=== PATIENT | male | born 1960 | race Caucasian/White ===

== ENCOUNTER 2018-01-07 09:34 | Day surgery (SDC) | payer OTHER, SELFPAY ==
[2018-01-07 10:04] VITALS: BP 105/62; PULSE 60; RESP 16; TEMP 36.7; O2SAT 100
[2018-01-07] MEDS: Lactated Ringers 1,000 ML 80 ML IV (10:07)
[2018-01-07] MEDS: GENTAMICIN 120 MG in Normal Saline 100 ML 200 MG IVPB (11:00)
[2018-01-07] MEDS: Lidocaine 2% Jelly 11 ML SYR (11:07)
--- NOTE | 2018-01-07 11:11 | W.PM.DSUDISC ---
Discharge Plan Disposition Patient Disposition: HOME Condition: Stable Discharge Details Attending Provider: Srinath Azevedo Primary Care Provider: Amauri Harrison Home Meds and New Rx's Prescriptions: New sulfamethoxazole-trimethoprim [Bactrim DS] 800-160 mg tablet 1 tab PO BID Qty: 6 RF: 0 Continue aspirin [Adult Aspirin Regimen] 81 mg tablet,delayed release (DR/EC) 81 mg PO DAILY RF: 0 famotidine 40 MG tablet 40 mg PO DAILY RF: 0 pravastatin 40 mg Tablet 40 mg PO DAILY RF: 0 diphenhydramine-acetaminophen [Acetaminophen PM] 25-500 mg Tablet 1,000 mg PO HS RF: 0 Discharge Instructions Additional Instructions: OK to shower/bathe F/U with me @ 1 month to review stone analysis Activity:: Activity as Tolerated Diet:: As Tolerated Discharge Orders Discharge Orders: Discharge Order (Routine); Ordered 01/07/18 Ordered By: Srinath Azevedo Discharge Data Discharge Comment: may use OTC tylenol and NSAIDs for pain
[2018-01-07] MEDS: Phenazopyridine 200 MG TAB PO (11:28)
[2018-01-07 11:45] VITALS: BP 105/67; PULSE 62; RESP 16; TEMP 35.9; O2SAT 98
--- NOTE | 2018-01-07 12:04 | ROE_ITS ---
REPORT OF OPERATIVE PROCEDURE DATE OF PROCEDURE January 07, 2018 PREOPERATIVE DIAGNOSIS Urethral stone. POSTOPERATIVE DIAGNOSIS Right kidney stone. PROCEDURE PERFORMED Cystoscopy, basket extraction of urethral stone. SURGEON Srinath Azevedo M.D. ANESTHESIA MAC with local. COMPLICATIONS None. FINDINGS Stone within prostatic urethra that was manipulated back into the bladder. HISTORY This is a 57-year-old gentleman, who has a past history of kidney stones. He had undergone ureteroscopic surgery down at [facility] about 10 to 15 years ago. About a week ago, he noticed some right-sided flank pain. The pain was suggestive of his previous renal colic. His pain actually improved, but then he had an abrupt stop in his urinary stream when he attempted to void. Since then, he has been able to void small amounts with a very slow stream. He has some perineal discomfort. Clinically, he is suspicious that his stone has lodged in the urethra. I had seen him up in the office and actually did a flexible cystoscopy. We were able to visualize the stone in his prostatic urethra, but I was unable to dislodge the stone or remove it. We then elected to bring him down to the Operating Room to manipulate the stone under anesthesia. We have our Holmium laser available should we need to fracture the stone. OPERATIVE REPORT The patient was brought to the Operating Room on 01/07/2018. After being given Monitored Anesthesia Care, he was placed in the dorsal lithotomy position. He was given a dose of preoperative IV gentamicin. He was prepped and draped. A #22 Vietnamese rigid cystoscope was passed through the urethra, just as we identified up in the office, the pendulous urethra appeared normal. There was a narrowing at the bulbous urethra and proximal to that, in the prostatic urethra , a stone was visualized. With the patient under anesthesia, I was able to manipulate the stone back into the bladder. We were then able to grasp the stone in a Zero Tip stone basket and remove it in its entirety. Repeat cystoscopy revealed no urethral lacerations. So I elected not to place a urethral catheter. The stones were sent to pathology for chemical analysis. The patient tolerated this procedure well. He was taken back to the Outpatient Area in stable condition. CC: Amauri Harrison M.D.
[2018-01-11 14:55] LABS: Source: Urethra
== END 2018-01-07 11:20 | disposition home or self-care (01) ==
PROVIDERS: PCP Family Medicine; Visit Provider Urology
PROC: (CPT 52310; principal; 2018-01-07 10:00)
DX: N21.0 Calculus in bladder (principal); Z87.442 Personal history of urinary calculi; K21.9 Gastro-esophageal reflux disease without esophagitis
CPT/HCPCS: 52310; 82360; J1580

== ENCOUNTER 2018-02-22 00:41 | Outpatient (CLI) | payer OTHER, SELFPAY ==
--- NOTE | 2018-02-22 13:33 | DI.CT_ITS ---
SYMPTOMS/DIAGNOSIS: CHECK STONE BURDEN, KIDNEY STONES ABDOMINAL AND PELVIC CT: CT scan of the abdomen and pelvis was performed according to the renal colic protocol. There are no priors for comparison. In the left kidney, there are approximately five stones present. There is a single nonobstructing stone in the upper pole, which is the largest and measures 0.7 cm. Approximately four nonobstructing smaller stones are seen in the lower pole. No ureterolithiasis or hydronephrosis is seen. In the right kidney, approximately eight to ten nonobstructing stones are present. The largest is in the lower pole and it measures 0.9 cm. No ureterolithiasis or hydronephrosis is seen. The urinary bladder is intact. No bladder stones are present. The prostate gland appears mildly enlarged and does appear to impinge upon the base of the urinary bladder. There is atherosclerosis of the abdominal aorta, but no aneurysmal dilatation is seen. The visualized lung bases are clear. Lack of IV contrast does limit evaluation of the abdominal and pelvic organs. The unenhanced liver, spleen, pancreas, gallbladder and adrenal glands are grossly unremarkable. There is patient motion artifact, which does limit the evaluation of the examination. The bowel shows no evidence of obstruction or inflammation. There are a few diverticula seen in the sigmoid colon but no evidence of acute diverticulitis. There is no evidence of an acute appendicitis present. No significant abdominal or pelvic adenopathy, ascites or pneumoperitoneum is present. Degenerative changes are seen in the spine. IMPRESSION: Bilateral nephrolithiasis.
== END 2018-02-22 01:01 ==
PROVIDERS: PCP Family Medicine; Visit Provider Urology
DX: N20.0 Calculus of kidney (principal); K57.30 Diverticulosis of large intestine without perforation or abscess without bleeding
CPT/HCPCS: 74176

== ENCOUNTER 2019-05-01 09:37 | Outpatient (CLI) | payer OTHER, SELFPAY ==
--- NOTE | 2019-05-01 08:36 | DI.RAD_ITS ---
EXAM: XR ABDOMEN FLAT PLATE CLINICAL HISTORY: monitor known stones, kayla kidney stones, N20.0 calculus of kidney TECHNIQUE: COMPARISON: CT ABDOMEN PELVIS WO from 02/22/2018 FINDINGS: Single view of the abdomen was obtained. There are multiple bilateral renal calculi, similar in appe arance to jigmaker view of prior CT of February 2018. There appear to be prostatic calcifications and t here are multiple phleboliths in the pelvis as well as vascular calcifications of the pelvis. IMPRESSION: Bilateral renal calculi as described.
== END 2019-05-01 09:57 ==
PROVIDERS: PCP Family Medicine; Visit Provider Urology
DX: N20.0 Calculus of kidney (principal)
CPT/HCPCS: 74018

== ENCOUNTER 2019-05-04 06:13 | Day surgery (SDC) | payer OTHER, SELFPAY ==
[2019-05-04 06:21] VITALS: BP 97/64; PULSE 70; RESP 16; TEMP 36.7; O2SAT 97
[2019-05-04] MEDS: Ciprofloxacin 250 MG TAB PO (06:48)
[2019-05-04] MEDS: Lactated Ringers 1,000 ML 80 ML IV (07:06)
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
--- NOTE | 2019-05-04 08:55 | W.PM.DSUDISC ---
Discharge Plan Disposition Patient Disposition: HOME Condition: Stable Discharge Details Reason For Visit: BILATERAL KIDNEY STONES Attending Provider: Srinath Azevedo Primary Care Provider: Amauri Harrison Home Meds and New Rx's Prescriptions: New tramadol 50 mg tablet 50 mg PO Q6H PRN (Reason: pain) Qty: 12 RF: 0 No Action aspirin [Adult Aspirin Regimen] 81 mg tablet,delayed release (DR/EC) 81 mg PO DAILY RF: 0 famotidine 40 MG tablet 40 mg PO DAILY RF: 0 pravastatin 40 mg Tablet 40 mg PO DAILY RF: 0 diphenhydramine-acetaminophen [Acetaminophen PM] 25-500 mg Tablet 1,000 mg PO HS RF: 0 Discharge Instructions Additional Instructions: strain urine - bring any fragment to office at time of followup visit F/U 4 to 6 weeks with KUB on day of visit script for Tramadol sent to pharmacy may restart aspirin tomorrow (Wednesday05/05/2019) Activity:: Activity as Tolerated Shower/Bathe:: 24 hours Diet:: As Tolerated Discharge Orders Discharge Orders: Discharge Order (Routine); Ordered 05/04/19 Ordered By: Srinath Azevedo DS: Diagnosis Discharge Diagnosis (1) Bilateral kidney stones: Status: Chronic
[2019-05-04 09:30] VITALS: BP 98/58; PULSE 66; RESP 16; TEMP 36.2; O2SAT 98
--- NOTE | 2019-05-05 09:39 | ROE_ITS ---
DATE OF PROCEDURE: May 04, 2019 PREOPERATIVE DIAGNOSIS: Bilateral kidney stones. POSTOPERATIVE DIAGNOSIS: Same. PROCEDURE: Bilateral extracorporeal shockwave lithotripsy. SURGEON: Srinath Azevedo M.D. ANESTHESIA: MAC COMPLICATIONS: None. ESTIMATED BLOOD LOSS: Minimal. HISTORY: This is a 59-year-old gentleman who has a history of bilateral kidney stones. In the past he has required ureteroscopic stone treatment. He has also had a stone become wedge in the urethra. I was able to treat him locally with cystoscopy and evacuation of the urethral stone. He is now having increasing right-sided pain. On imaging studies he was identified as having mid-fidel e stones on the right, as well as a large lower pole stone. On the left side he was found to have a large lower pole stone. We had discussed multiple treatment options including ureteroscopy, ESWL or percutaneous nephrolithot yamile. He elected to proceed with ESWL. OPERATIVE REPORT: The patient was brought to the operating room on 05/04/2019. He was given monitore d anesthesia care and positioned on the lithotriptor bed. We elected to treat the left side first. His lower pole stone was identified radiographically (both with ultrasound and fluoroscopy). He was positioned such that the stone was within the focal zone of the lithotriptor. He was then treated with a total of 2500 shocks. We ranged our power setting fro m 1 to 20. There appeared to be excellent fragmentation of the stone when it was viewed with imaging studies. We then moved the patient such that the right side could be treated. We started with the mid-pole st one and localized it radiographically. The stone was then treated with a total of 1000 shocks rangin g from 1 to 20. We then moved on to the right lower pole stone and treated that stone with the remai lottie 1500 shocks at a power setting of 20. All stones appeared to fragment well, but there was no obvious migration of stone particles during th e treatment. He tolerated this procedure well with no complications. cc: Amauri Harrison M.D.
== END 2019-05-04 10:00 | disposition home or self-care (01) ==
PROVIDERS: PCP Family Medicine; Visit Provider Urology
PROC: (CPT 50590; principal; 2019-05-04 07:30)
DX: N20.0 Calculus of kidney (principal); Z87.442 Personal history of urinary calculi
CPT/HCPCS: 50590; NC; J1885; J2001; J2405; J2704; J3010

== ENCOUNTER 2023-02-23 13:37 | Outpatient (REF) | payer OTHER, SELFPAY ==
[2023-02-23 14:42] LABS: Bilirubin Negative (Negative); Blood Small (Negative); Clarity Clear (Clear); Glucose Negative (Negative); Ketones Negative (Negative); Leukocyte Esterase Negative (Negative); Nitrite Negative (Negative); Specific Gravity 1.025 (1.005-1.025); Urobilinogen 0.2 mg/dL (Up to 0.2); pH 6.5 (5-8)
[2023-02-23 14:53] LABS: Bacteria Negative HPF (Negative); C & S Indicated? No; Casts 0-2 Hyaline LPF (Negative); Crystals Negative HPF (Negative); Epithelial Cells Rare HPF (Negative); Mucus Negative (Negative); WBC Negative HPF (0-5)
== END 2023-02-23 13:38 | disposition home or self-care (01) ==
LOC: LBN 13:37
PROVIDERS: PCP Family Medicine; Visit Provider Nurse Practitioner Gerontology
DX: R31.29 Other microscopic hematuria (principal)
CPT/HCPCS: 81003; 81015

== ENCOUNTER → 2023-03-17 01:22 | Outpatient (CLI) | payer OTHER, SELFPAY ==
--- NOTE | 2023-03-17 07:00 | DI.CT_ITS ---
Exam(s) CT ABDOMEN PELVIS WO/W EXAM: CT ABDOMEN PELVIS WO/W CLINICAL HISTORY: RBC 10-25. painless hematuria,r31.9. TECHNIQUE: Imaging Protocol: Axial computed tomography images with coronal and sagittal reformatted images were created and reviewed. Images were performed from the lung bases through the ischial tuberosities before IV contrast and fol lowing IV contrast using a 70 second delay, followed by 7 minutes delayed images. CONTRAST MATERIAL: Intravenous: Omnipaque 350 Contrast volume:100 cc Oral: no COMPARISON: CT CT ABDOMEN PELVIS WO from 02/22/2018 CR XR ABDOMEN FLAT PLATE from 05/01/2019 FINDINGS: ABDOMEN and PELVIS: Lung Bases: 17 millimeter mass medial right lower lobe. Mild emphysematous changes visible. Liver: Normal density. Stable simple cysts in the left lobe of the liver. No suspicious mass. Gallbladder and biliary tract: No radiodense calculus or dilation. Pancreas: Normal density, no abnormal calcifications or inflammatory process. Spleen: Normal. Kidneys: Normal size, contour and axis. Bilateral nephrolithiasis, upper mid and lower poles, increas ing from prior exam. Mild dilatation of the left renal pelvis and proximal left ureter with urotheli al thickening. No focal visible mass. This could be secondary to inflammatory changes however malig sae should be considered. Adrenal glands: No masses seen. Lymph nodes: Within normal limits. Abdominal Aorta: Abdominal portion non-dilated. Atherosclerotic changes. Soft tissues: Unremarkable. Bladder: No gross wall thickening. No evidence of a mass.No evidence of calculi. Bowel: Mild dilatation, greater involving the jejunum. Mild diffuse wall thickening. Findings may in dicate enteritis. Normal quantity of stool. Appendix normal. Peritoneal cavity: No ascites, collection or mesenteric inflammatory response. Bones: Degenerative changes. No lytic or blastic lesions. Reproductive organs: Prostate mildly enlarged. Prostate calcifications. IMPRESSION: Mild left hydronephrosis and left urothelial thickening without focal mass visible. Consider uretero scopy. 1.7 centimeter mass right lower lobe. Unexpected findings RADIATION DOSE DELIVERED: Total DLP DATA REPOSITORY: All CT scans at this facility are submitted to the National Radiology Data Registry (NRDR) Dose Index Registry (DIR) with the [employer] (A[employer]). RADIATION OPTIMIZATION: All CT scans at this facility use at least one of these dose optimization te chniques: automated exposure control; mA and/or kV adjustment per patient size (includes targeted exa ms where dose is matched to clinical indication); or iterative reconstruction.
[2023-03-17 07:40] LABS: Estimated GFR 84.05 (mL/min/1.73m2)
[2023-03-17] MEDS: Omnipaque 350 MG/ML 500 ML BTL-Imaging package IJ (08:43)
[2023-03-17] MEDS: Normal Saline - Diluent 50 ML VIAL IJ (08:47)
== END ==
PROVIDERS: PCP Family Medicine; Visit Provider Nurse Practitioner Gerontology
DX: R31.9 Hematuria, unspecified (principal); N13.39 Other hydronephrosis; R91.1 Solitary pulmonary nodule
CPT/HCPCS: 74178; 82565

== ENCOUNTER 2023-04-29 15:03 | Outpatient (REF) | payer OTHER, SELFPAY ==
--- NOTE | 2023-04-29 13:30 | PAPNONF_PTH ---
PATIENT: Ketan Gilliam LOC: [facility] U#:[id number] AGE/SX: 63/M ROOM: RE04/29/[address]: Raysa Kitchen DNP : 1960 BED: DIS: 04/29/2023 SPEC #: [id number] RECD: 04/29/23 17:40 STATUS: MIMA REQ #: [id number] BOB: 04/29/23 13:[address]: Raysa Kitchen DEPT: [facility] Cytology RECD BY: Carina Manrique ENTERED: 04/29/23 17:40 SP TYPE: ERNIE DOHERTY DR: Amauri Harrison Tissues: 1 - BODY FLUID CYTO(SPUTUM/URINE)UV Procedures: BODY FLUID CYTO(URINE/SPUTUM) Comments: [id number] (TOTAL VOLUME = 80 ml) (REFRIGERATED) (30ml CYTOLYT ADDED TO 40ml URINE IN 2 CONTAINERS)
== END 2023-04-29 15:04 | disposition home or self-care (01) ==
LOC: LBN 15:03
PROVIDERS: PCP Family Medicine; Visit Provider Nurse Practitioner Gerontology
DX: R31.9 Hematuria, unspecified (principal); B96.89 Other specified bacterial agents as the cause of diseases classified elsewhere
CPT/HCPCS: 88104

== ENCOUNTER 2023-05-18 05:01 | Outpatient (CLI) | payer OTHER, SELFPAY ==
[2023-05-18] MEDS: Levalbuterol HFA 15 GM INH 4 PUFF IH (16:10)
[2023-05-18] MEDS: Inhaler, Assist Device 1 EACH MC (16:11)
--- NOTE | 2023-05-20 09:22 | W.PFT ---
Date of service: 05/18/23 Time of Service: 14:41 Pulmonary Function Test Result Indications: Dyspnea Interpretation Spirometry: There is no airflow limitation. No bronchodilator response. Lung Volumes: Normal lung volumes Diffusion Capacity: Decreased diffusion Airway Pressure: Normal airways resistance Impression Isolated diffusion deficit. This could be due to emphysema, early ILD or pulmonary vascular disease (pulmonary hypertension). Clinical Correlation therefore is recommended.
== END 2023-05-18 05:02 | disposition home or self-care (01) ==
LOC: RT 05:01
PROVIDERS: PCP Family Medicine; Visit Provider Student in an Organized Health Care Education/Training Program
DX: R06.00 Dyspnea, unspecified (principal); F17.210 Nicotine dependence, cigarettes, uncomplicated; R94.2 Abnormal results of pulmonary function studies
CPT/HCPCS: 94060; 94726; 94729

== ENCOUNTER 2024-07-12 18:46 | Outpatient (REF) | payer OTHER, SELFPAY ==
[2024-07-12 20:29] LABS: Bilirubin Negative (Negative); Blood Moderate (Negative); Clarity Clear (Clear); Glucose Negative (Negative); Ketones Negative (Negative); Leukocyte Esterase Negative (Negative); Nitrite Negative (Negative); Urobilinogen 0.2 mg/dL (Up to 0.2)
[2024-07-12 20:41] LABS: Bacteria Negative HPF (Negative); C & S Indicated? No; Casts Negative LPF (Negative); Crystals Negative HPF (Negative); Epithelial Cells Negative HPF (Negative); Mucus Negative (Negative); WBC Negative HPF (0-5)
== END 2024-07-12 18:47 | disposition home or self-care (01) ==
LOC: LBN 18:46
PROVIDERS: PCP Family Medicine; Visit Provider Nurse Practitioner Gerontology
DX: R31.21 Asymptomatic microscopic hematuria (principal); R39.9 Unspecified symptoms and signs involving the genitourinary system; N20.0 Calculus of kidney
CPT/HCPCS: 81003; 81015